=== PATIENT | female | born 1955 | race Caucasian/White ===

== ENCOUNTER → 2018-09-13 | Outpatient (CLI) | payer MEDICARE, OTHER ==
--- NOTE | 2018-09-14 11:57 | CRLMY ---
INDICATION: bilateral screening mammogram asymptomatic 62 year old been obtained using full-field digital technique. These mammographic images were interpreted with the benefit of computer-aided detection. COMPARISON FILM: 08/31/17, 08/20/16, 08/20/15, 08/16/14. FINDINGS: There are scattered fibroglandular densities. There are no masses or calcifications that are suspicious for malignancy. IMPRESSION: There is no radiographic evidence for malignancy. ASSESSMENT: BI-RADS Category 1: Negative RECOMMENDATION: Routine screening mammogram in 1 year. A lay language report of this examination will be provided to the patient. Breast Tomosynthesis was used in this interpretation. [email or web address] Dictated by: Irving Rooney MD @ 09/14/2018 11:55:54 (Electronically Signed)
== END ==
LOC: JP.MAM 12:21
PROVIDERS: ATTEND Family Medicine
DX: Z12.31 Encounter for screening mammogram for malignant neoplasm of breast (principal)
CPT/HCPCS: 77063; 77067

== ENCOUNTER 2021-07-28 06:56 | Day surgery (SDC) | payer MEDICARE, BC ==
[2021-07-28] MEDS ORDERED: Propofol 200 MG/20 ML SDV ONE (07:24)
[2021-07-28] MEDS ORDERED: fentaNYL 100 MCG/2 ML SDV ONE (07:24)
[2021-07-28] MEDS ORDERED: Midazolam 1 MG/ML 2 ML SDV ONE (07:24)
[2021-07-28] MEDS ORDERED: Sodium Chloride 0.9% 1,000 ML IV SCH (07:30)
== END 2021-07-28 09:50 | disposition home or self-care (01) ==
LOC: JP.SDS 06:56
PROVIDERS: ATTEND Surgery
DX: Z12.11 Encounter for screening for malignant neoplasm of colon (principal); E78.5 Hyperlipidemia, unspecified
CPT/HCPCS: J2250; J2704; J3010; J7030